=== PATIENT | female | born 1995 | race Hispanic/Latino ===

== ENCOUNTER 2019-09-09 06:23 | Emergency (ER) | payer OTHER ==
[2019-09-09] MEDS ORDERED: CEFTRIAXONE SODIUM 1 GM ONE (06:39)
[2019-09-09] MEDS ORDERED: ACETAMINOPHEN EXTRA STRENGTH 500 MG TABLET ONE (06:39)
[2019-09-09] MEDS ORDERED: LIDOCAINE HCL 2% VISCOUS 15 ML UDCUP ONE (06:39)
[2019-09-09] MEDS ORDERED: LIDOCAINE HCL-MPF 1% 2ML VIAL ONE (06:41)
== END 2019-09-09 07:03 | disposition home or self-care (01) ==
LOC: EDH 06:23
DX: J02.9 Acute pharyngitis, unspecified (principal)
CPT/HCPCS: 96372; 99283; J0696; J3490

== ENCOUNTER 2025-08-30 21:16 | Emergency (ER) | payer BC ==
[~2025-08-30] VITALS: Ht 154.9 cm; Wt 124.7 kg
[2025-08-30] MEDS: HYDROcodone/APAP 5/325 1 TAB TABLET PO ONE (21:39)
[2025-08-30] MEDS: LIDOCAINE 1%-EPI 1:100,000 20 ML VIAL IJ ONE (22:45)
--- NOTE | 2025-08-30 23:13 | HMCIMG ---
EXAM: CR Left Forearm, 2 views. CLINICAL HISTORY: Pain. COMPARISON: None provided. FINDINGS: Acute displaced fracture around the distal radial metaphysis with dorsal displacement of the distal segment and surrounding soft tissue swelling. The remaining bones and joints are within normal limits. IMPRESSION: Acute displaced fracture around the distal radial metaphysis with dorsal displacement of the distal segment and surrounding soft tissue swelling. /[place]
--- NOTE | 2025-08-30 23:14 | HMCIMG ---
EXAM: CR Left Wrist, 3 Views. CLINICAL HISTORY: Pain. COMPARISON: None provided. FINDINGS: Acute displaced fracture around the distal radial metaphysis with dorsal displacement of the distal segment and surrounding soft tissue swelling. There is a tiny acute avulsion fracture around the tip of the ulnar styloid process. The remaining bones and joints are within normal limits. IMPRESSION: Acute displaced fracture around the distal radial metaphysis with dorsal displacement of the distal segment and surrounding soft tissue swelling. There is a tiny acute avulsion fracture around the tip of the ulnar styloid process. /[place]
--- NOTE | 2025-08-30 23:52 | HMCIMG ---
EXAM: CR Left Wrist, 3 views. CLINICAL HISTORY: Postreduction. COMPARISON: Same-day radiograph of the left wrist. FINDINGS: Acute displaced fracture around the distal radial metaphysis with dorsal displacement of the distal segment and surrounding soft tissue swelling. There is a tiny acute avulsion fracture around the tip of the ulnar styloid process. The remaining bones and joints are within normal limits. IMPRESSION: Acute displaced fracture around the distal radial metaphysis with dorsal displacement of the distal segment and surrounding soft tissue swelling. There is a tiny acute avulsion fracture around the tip of the ulnar styloid process. The post-reduction alignment is unsatisfactory. /[place]
--- NOTE | 2025-08-31 | NUR ---
PER ER MD, SPLINT APPLIED TO LEFT WRIST. PATIENT EDUCATED ON SPLINT CARE AND VERBALIZED UNDERSTANDING. NEUROVASCULAR STATUS IS NORMAL IN LEFT ARM AND HAND.
[2025-08-31] MEDS ORDERED: MELO-108 PO (00:05)
--- NOTE | 2025-08-31 00:11 | ERN ---
ED Note History of Present Illness Stated Complaint: LEFT WRIST Chief Complaint: Wrist Pain/Injury Time Seen by MD: 21:19 Time Seen by Midlevel: 21:19 Dictation: The Patient is a 30-year-old female who presents to the emergency department with complaints of left wrist pain after an accidental fall yesterday. Patient reports she put her arm to break the fall, denies any other injuries. Patient is right-hand dominant Allergies: Coded Allergies: No Known Allergies (Unverified Allergy, Unknown, 08/30/25) Home Meds Active Scripts Meloxicam (Meloxicam) 15 Mg Tablet, 1 TAB PO DAILY for 20 Days, #20 TAB 0 Refills Prov:JARON CHANDLER PROGRAMMING ENGINEER 08/31/25 Past Medical History Past Medical History: No Pertinent History Surgical History: None LMP: Aug 25, 2025 RN Note Reviewed/Agreed w/PFSH: Yes Review of System Dictation Constitutional: Negative for fever,chills, and weight loss Eyes: Negative for injury, pain,redness, and discharge ENT: Negative for injury,pain or swelling Cardiovascular: Negative for chest pain, palpitations, and edema Respiratory: Negative for shortness of breath, cough, and wheezing, Abdomen/GI: Negative for abdominal pain, nausea, vomiting, diarrhea, and constipation Back: Negative for injury and pain : Negative for injury, bleeding and discharge MS/Extremity: Positive for left wrist pain Skin: Negative for rash, and discoloration Neuro: Negative for headache, weakness, numbness, tingling, and seizure Psych: Negative for suicide ideation, homicidal ideation, and hallucinations Initial Vital Sign VS Vital Signs Date Time Temp Pulse Resp B/P (MAP) Pulse Ox O2 Delivery O2 Flow Rate FiO2 08/30/25 21:19 97.5 95 18 175/88 100 Room Air 08/30/25 21:27 0 21 Physical Exam Dictation Vital Signs reviewed General Appearance: Alert, oriented x 3, no acute distress, well developed, nourished. Head and Face: non-traumatic. Eyes: PERRL, pink conjunctivas, eyelid no trauma, anterior chamber with arcus senilis. Ears: Pinnas intact and no signs of trauma or erythema ear canals clear and no discharge TM no erythema Nose: No discharge, no bleeding. Oropharynx: Mouth normal, tongue pink. pharynx clear,no erythema, tonsils no exudates, no abscesses noted, mucous membrane moist Neck: Supple, non-tender, no thyromegaly, no masses, no JVD, no bruits Breast:Deferred Chest:No tenderness, no crepitus, no paradoxical movement, no retractions Lungs:Clear, well-ventilated, symmetric, no rales, no wheezing, no rhonchi, no stridor, good breath sounds bilaterally Heart: Regular rate, regular rhythm, no murmur, no gallops Vascular: no peripheral edema, Abdomen: Soft, positive bowel sounds, nondistended, no guarding, nontender, no rebound, no masses no hepatomegaly, no splenomegaly, no Sumner's sign, no hernias. Rectal: Deferred Genital: Deferred Neurological: Normal speech, motor function intact, sensory function intact Musculoskeletal: Neck nontender, full range of motion, back nontender, full range of motion, Extremities: left wrist tenderness and deformity, no open wounds, full rom to all fingers, cap refill less than 2 sec. Skin: Color pink, dry, no turgor, no rash, no lacerations, no abrasions, no contusions. Lymphatic: Deferred Results (Laboratory/Radiology) Laboratory/Radiology Laboratory Tests Test 08/30/25 21:39 Urine HCG, Qualitative NEGATIVE (NEGATIVE) REASON: pain ORDERING PHYSICIAN: JARON CHANDLER PROGRAMMING ENGINEER PROCEDURE: FORARML - FOREARM 2VWS LT EXAM: CR Left Forearm, 2 views. CLINICAL HISTORY: Pain. COMPARISON: None provided. FINDINGS: Acute displaced fracture around the distal radial metaphysis with dorsal displacement of the distal segment and surrounding soft tissue swelling. The remaining bones and joints are within normal limits. IMPRESSION: Acute displaced fracture around the distal radial metaphysis with dorsal displacement of the distal segment and surrounding soft tissue swelling. /[place] REASON: pain ORDERING PHYSICIAN: JARON CHANDLER PROGRAMMING ENGINEER PROCEDURE: WRST 3V LT - WRIST COMP 3+VWS LT EXAM: CR Left Wrist, 3 Views. CLINICAL HISTORY: Pain. COMPARISON: None provided. FINDINGS: Acute displaced fracture around the distal radial metaphysis with dorsal displacement of the distal segment and surrounding soft tissue swelling. There is a tiny acute avulsion fracture around the tip of the ulnar styloid process. The remaining bones and joints are within normal limits. IMPRESSION: Acute displaced fracture around the distal radial metaphysis with dorsal displacement of the distal segment and surrounding soft tissue swelling. There is a tiny acute avulsion fracture around the tip of the ulnar styloid process. /[place] REASON: post reduction ORDERING PHYSICIAN: JARON CHANDLER PROCEDURE: WRST 3V LT - WRIST COMP 3+VWS LT EXAM: CR Left Wrist, 3 views. CLINICAL HISTORY: Postreduction. COMPARISON: Same-day radiograph of the left wrist. FINDINGS: Acute displaced fracture around the distal radial metaphysis with dorsal displacement of the distal segment and surrounding soft tissue swelling. There is a tiny acute avulsion fracture around the tip of the ulnar styloid process. The remaining bones and joints are within normal limits. IMPRESSION: Acute displaced fracture around the distal radial metaphysis with dorsal displacement of the distal segment and surrounding soft tissue swelling. There is a tiny acute avulsion fracture around the tip of the ulnar styloid process. The post-reduction alignment is unsatisfactory. /[place] Labs Reviewed?: Yes ED Course ED Course Orders Procedure Category Date Status Time Wrist Comp 3+Vws Lt RAD 08/30/25 Resulted 21:29 ,Urine Test LAB 08/30/25 Complete 21:29 Forearm 2vws Lt RAD 08/30/25 Resulted 21:29 Hydrocodone/Apap PHA 08/30/25 Complete 5/325 ([place] 5/325mg) 21:30 Lidocaine 1%-Epi PHA 08/30/25 Complete 1:100,000 (Lidocaine 23:00 Ketorolac 60mg/2ml PHA 08/30/25 Complete (Toradol 60mg/2ml) 23:00 Wrist Comp 3+Vws Lt RAD 08/30/25 Resulted 23:21 Current Medications Medications (Trade) Dose Ordered Sig/[place] Route PRN Reason Start Time Stop Time Status Last Admin Dose Admin Acetaminophen/ Hydrocodone Bitart (NORco 5/325MG) 1 tab ONCE ONCE PO 08/30/25 21:30 08/30/25 21:35 DC 08/30/25 21:39 Ketorolac Tromethamine (toRADol 60MG/ 2ML) 60 mg ONCE ONCE IM 08/30/25 23:00 08/30/25 23:01 DC 08/30/25 23:08 Lidocaine/ Epinephrine (Lidocaine 1%-Epi 1:100,000) 20 ml ONCE ONCE IJ 08/30/25 23:00 08/30/25 23:01 DC Vital Signs Date Time Temp Pulse Resp B/P (MAP) Pulse Ox O2 Delivery O2 Flow Rate FiO2 08/30/25 21:27 98.8 103 19 163/100 97 Room Air* 0 21 08/30/25 21:19 97.5 95 18 175/88 100 Room Air Medical Decision Making MDM The Patient is a 30-year-old female who presents to the emergency department with complaints of left wrist pain after an accidental fall yesterday. Patient reports she put her arm to break the fall, denies any other injuries. Patient is right-hand dominant Xray showed an acute displace fracture around the distal radial metaphysis with dorsal displacement of the distal segment and surrounding soft tissue swelling. Reduction attempted by . Case discussed with ortho solar electric practitioner who states patient can follow up in office. Patients wrist was splinted. Patient continues neurovascular intact. good radial pulse, good cap refill. Patient agrees to follow up with ortho. Differential diagnosis: Colles' fracture, displaced fracture, wrist sprain Need for hospitalization: Patient does not meet criteria for hospitalization. There are no social concerns with this patient. Procedure Procedure Dictation: Procedure: Left Wrist reduction Date: 08/30/2025 Time: 1120 Verbal consent for the procedure was obtained. A timeout protocol was performed prior to initiating the procedure. The area was prepared . The site was anesthetized with a hematoma block 1% lidocaine with epinephrine. 1 Reduction attempt. The patient tolerated the procedure well without complications. Standard post- procedure care is explained and return precautions are given.Patient neurovascular intact post reduction. DX & DISP Disposition: Discharge Departure Impression: Primary Impression: Colles' fracture Additional Impressions: Distal radial fracture, Fracture of ulnar styloid Condition: Stable Scripts Meloxicam (Meloxicam) 15 Mg Tablet 1 TAB PO DAILY for 20 Days, #20 TAB 0 Refills Prov: JARON CHANDLER PROGRAMMING ENGINEER 08/31/25 Additional Instructions: Your xray showed that you fracture your wrist. Please follow up with orthopedic doctor (bone doctor) as soon as possible. Monitor your hand for any numbness, decrease sensation, change in color or if you have any concerns please return to ER. FOLLOW-UP WITH PRIMARY CARE PROVIDER IN 1 TO 2 DAYS. TAKE MEDICATIONS DIRECTED HERE IN THE EMERGENCY ROOM. OKAY TO CONTINUE HOME MEDICATIONS UNLESS OTHERWISE DISCUSSED DURING YOUR VISIT IN THE EMERGENCY ROOM TODAY. RETURN TO YOUR NEAREST EMERGENCY ROOM IF SYMPTOMS WORSEN OR IF THERE IS NO IMPROVEMENT. CALL 911 IF YOU NEED IMMEDIATE ASSISTANCE. TAKE TYLENOL [id number] NEEDED AND IF NO CONTRAINDICATIONS ARE PRESENT. INCREASE ORAL HYDRATION. A WOUND CULTURE OR URINE CULTURE WAS ORDERED HERE IN THE EMERGENCY ROOM DEPARTMENT PLEASE FOLLOW-UP WITH PRIMARY CARE PROVIDER AND ADVISE THEM TO GET REPEAT PORTS FROM OUR FACILITY. IF YOU HAD ANY JUANA WRAP/SPLINTS THAT WERE APPLIED HERE, PLEASE DO NOT REMOVE THEM UNTIL YOU SEE YOUR PRIMARY CARE OR SPECIALTY. Referrals: SELF,REFERRAL (PCP) LIU SOLIZ MD Time of Disposition: 00:09 I have examined patient, & reviewed all documents, & agreed W/ the Diagnosis, and Plan JARON CHANDLER [facility] Aug 31, 2025 00:11
[2025-08-31 00:20] VITALS: BP 151/84; PULSE 93; RESP 22; TEMP 98.8; O2SAT 100
== END 2025-08-31 00:27 | disposition home or self-care (01) ==
LOC: EDH 21:16
DX: S52.532A Colles' fracture of left radius, initial encounter for closed fracture (principal); S52.612A Displaced fracture of left ulna styloid process, initial encounter for closed fracture; Z79.1 Long term (current) use of non-steroidal anti-inflammatories (NSAID); W18.39XA Other fall on same level, initial encounter; Y93.89 Activity, other specified; Y92.89 Other specified places as the place of occurrence of the external cause; Y99.8 Other external cause status
CPT/HCPCS: 25605; 99284; 81025; 73090; 73110 ×2; 96372; J1885; J3490; 96374

== ENCOUNTER 2025-09-09 08:18 | Day surgery (SDC) | payer BC ==
[2025-09-08 13:13] LABS: CREATININE 0.4 mg/dL (0.5-1.0); GLOMERULAR FILTR. RATE CALC 136.0 mL/min (>90); GLUCOSE,RANDOM 82.0 mg/dL (70-105); SODIUM SERUM 139.0 mmol/L (136-145); UREA NITROGEN, BLOOD 10.0 mg/dL (7-18)
[2025-09-08 13:27] VITALS: BP 131/78; PULSE 81; RESP 12; TEMP 97.9
[2025-09-08 13:40] LABS: IMMATURE GRANULOCYTE ABSOLUTE 0.03 K/uL (0-1); NUCLEATED RED BLOOD CELLS 0.0 % (0.0-0.19); PLATELET COUNT (AUTO) 340 K/uL (130-400); RED BLOOD CELL COUNT(AUTO) 4.38 MIL/uL (4.00-5.50); RED CELL DISTRIBUTION WIDTH 12.3 % (11.0-15.5); WHITE BLOOD COUNT (AUTO) 7.5 K/uL (4.8-10.8)
[2025-09-08 13:42] LABS: INR 1.08 (0.85-1.15)
[~2025-09-09] VITALS: Ht 154.9 cm; Wt 122.6 kg
[2025-09-09] VITALS (14 sets, daily range): BP systolic 125–151; BP diastolic 70–87; PULSE 81–98; RESP 15–16; TEMP 97–97.5
[~2025-09-09 08:18] MED LIST: MELO-108 PO
[2025-09-09] MEDS: LACTATED RINGERS 1000ML 1,000 ML IV ONE (09:25)
[2025-09-09] MEDS ORDERED: MIDAZOLAM HCL 1 MG/ML 2ML VIAL ONE (10:23)
[2025-09-09] MEDS ORDERED: NEOSTIGMINE METHYLSULFATE 1MG/ML IV ONE (13:31)
[2025-09-09] MEDS ORDERED: GLYCOPYRROLATE 0.2 MG/ML 5 ML VIAL ONE (13:31)
[2025-09-09] MEDS ORDERED: ACET-2079 PO (13:37)
[2025-09-09] MEDS ORDERED: PROMETHAZINE HCL 25 MG/ML 1ML AMPULE IM PRN (14:30)
--- NOTE | 2025-09-09 15:57 | HMCIMG ---
Fluoroscopic support provided for left wrist surgery Impression: Fluoroscopic support /[place]
--- NOTE | 2025-09-09 16:27 | OP ---
Operative Note: DATE OF PROCEDURE: 09/09/25 SURGEON: LIU SOLIZ MD UPPER LEATHER SORTER: Kerry Moreira ANESTHESIA: General and axillary nerve block ANESTHESIOLOGIST/SERVICE ESTABLISHMENT ATTENDANT: Salomon Brasher CRNA PREOPERATIVE DIAGNOSIS: Extra-articular left distal radius fracture POSTOPERATIVE DIAGNOSIS: Extra-articular left distal radius fracture PROCEDURE: Open reduction internal fixation left distal radius fracture ESTIMATED BLOOD LOSS: 5 cc INDICATIONS: 30-year-old female who presented to our clinic an proximally five days after a fall with a injury to her left wrist. She was noted to have a significantly displaced distal radius fracture with shortening dorsal angulation and loss of radial inclination. She had been splinted in the emergency room with a a reduction. We reviewed her x-rays and discussed the risks, benefits, and alternatives to undergoing open reduction internal fixation of the left distal radius. She voluntarily agreed to move forward with surgery. DESCRIPTION OF PROCEDURE: Patient was properly identified in the preoperative holding area. Surgical site marking was verified and surgery consent reviewed. The patient was then taken to the operating room and placed in supine position on the OR table. After induction of general anesthesia, preoperative antibiotics were given, all bony prominences were well-padded, and a well padded tourniquet was applied but not inflated at this time. The left upper extremity was then prepped and draped in usual sterile fashion. Surgical timeout was done verifying correct surgery, side, site, and location to be performed. We then began the procedure by exsanguinating the limb using an Esmarch and inflating her tourniquet 250 mmHg. We made an approximately 9 cm long volar incision overlying the FCR tendon. At this point we performed a standard FCR approach, retracting the FCR and FPL tendons ulnarly so we were able to visualize the pronator quadratus. The pronator quadratus was then incised along its insertion on the radial border and elevated using a wooden handle elevator. We were then able to use a freer elevator to free up our fracture fragment and distract this. We then were able to debride some of the interposed periosteum and soft tissue using a curette. We noted there to be one large articular fragment. The reduction was then obtained using traction and a provisional styloid K wire was placed to hold this reduction. This was then visualized under AP and lateral fluoroscopic views to ensure we were happy with the reduction wire placement. We then selected our plate, using the [employer] EVOS three hole distal radius plate. This was pinned into place and verified to be in appropriate position under AP and lateral fluoroscopic views. We then placed our slot screw proximally using a 2.7 cortical screw. At this point we began to drill and fill the distal screws through the locking drill guide, placing all locking screws in this portion. We took care to ensure there was no screw prominence. We then removed our provisional fixation K wire and placed her remaining 2.7 screws cortical proximally. At this point we obtained our final AP and lateral fluoroscopic films insuring we were happy with our hardware placement and fixation of the distal radius fracture as well as the reduction. We then thoroughly irrigated out the wound with normal saline and began to repair the subcutaneous tissue using a 2-0 Vicryl suture. A running subcuticular 3-0 Monocryl stitch was used to close the skin. Dermabond was applied over this. Dressing consisting of 4 x 4's cast padding and a volar resting splint were applied. The tourniquet was then deflated. The patient was awakened from anesthesia and taken to the recovery room in stable condition. LIU SOLIZ MD Sep 09, 2025 16:26
== END 2025-09-09 16:06 | disposition home or self-care (01) ==
LOC: DAH 08:18
PROVIDERS: ATTEND Student in an Organized Health Care Education/Training Program
DX: S52.552A Other extraarticular fracture of lower end of left radius, initial encounter for closed fracture (principal); Z79.01 Long term (current) use of anticoagulants; Z79.899 Other long term (current) drug therapy; W01.0XXA Fall on same level from slipping, tripping and stumbling without subsequent striking against object, initial encounter; Y93.89 Activity, other specified; Y92.89 Other specified places as the place of occurrence of the external cause; Y99.8 Other external cause status; E66.01 Morbid (severe) obesity due to excess calories; Z68.43 Body mass index [BMI] 50.0-59.9, adult
CPT/HCPCS: 80048; 84703; 85025; 85610; 85730; 36415; 25607; 64417; 73110; C1713 ×8; A4663; J0690 ×3; J7120; J3010 ×4; J3490 ×3; J2250; J2704; J2405; J2270; J2710; A6223; A4649 ×2; A4930; A4215; A4213; A4222; A4221; A4216; A4223 ×2; A4600